=== PATIENT | female | born 1950 | race Caucasian/White ===

== ENCOUNTER 2022-05-30 08:08 | Outpatient (CLI) | payer MEDICARE | END 2022-05-30 08:09 | disposition home or self-care (01) | LOC: NM 08:08 | PROVIDERS: ATTEND Internal Medicine Endocrinology, Diabetes & Metabolism | DX: E05.00 Thyrotoxicosis with diffuse goiter without thyrotoxic crisis or storm (principal) | CPT/HCPCS: 78014; A9516 ==

== ENCOUNTER 2022-06-24 12:23 | Outpatient (CLI) | payer MEDICARE | END 2022-06-24 12:24 | disposition home or self-care (01) | LOC: NM 12:23 | PROVIDERS: ATTEND Internal Medicine Endocrinology, Diabetes & Metabolism | DX: E05.00 Thyrotoxicosis with diffuse goiter without thyrotoxic crisis or storm (principal) | CPT/HCPCS: 79005; A9517 ×2 ==

== ENCOUNTER 2025-07-25 12:20 | Emergency (ER) | payer MEDICARE ==
[2025-07-25] MEDS ORDERED: Iopamidol-370 76% 500 ML MDV (1 ML CHARGE) ONE (14:00)
[2025-07-25 14:11] LABS: #Basophils Less than 0.03 10x3/uL (0.0-0.2); #Eosinophils Less than 0.03 10x3/uL (0.0-0.7); #Monocytes 0.93 10x3/uL (0.11-0.59); #Neutrophils 5.44 10x3/uL (1.40-6.50); %Basophils 0.3 % (0.0-1.0); %Eosinophils 0.3 % (0.0-10.0); %Lymphocytes 8.7 % (21.0-51.0); %Monocytes 13.2 % (0.0-10.0); %Neutrophils 77.1 % (42.0-75.0); Hematocrit 42.2 % (36.0-47.0); Hemoglobin 13.4 g/dL (12.0-16.0); Mean Corpuscular Hemoglobin 28.0 pg (27.0-31.0); Mean Corpuscular Volume 88.3 fL (78.0-98.0); Platelet Count 236 10x3/uL (130-400); Red Blood Cell (RBC) Count 4.78 mill/uL (4.20-5.40); White Blood Cell (WBC) Count 7.05 10x3/uL (4.8-10.8)
[2025-07-25 14:33] LABS: ALT (SGPT) 306 U/L (Less than 34); AST (SGOT) 284 U/L (11-34); Albumin 3.2 g/dL (3.1-4.5); Alkaline Phosphatase 343 U/L (40-110); Anion Gap 13 mmol/L (10-20); BUN (Urea Nitrogen) 6 mg/dL (9.8-20.1); Bilirubin, Total 8.1 mg/dL (0.3-1.2); Calc. Creatinine Clearance 0 mL/min (70-130); Calcium 9.3 mg/dL (7.8-10.44); Carbon Dioxide 25 mmol/L (23-31); Chloride 105 mmol/L (98-107); Globulin 3.8 g/dL (2.4-3.5); Glucose 130 mg/dL (83-110); Lipase 14 U/L (8-78); Potassium 3.5 mmol/L (3.5-5.1); Sodium 139 mmol/L (136-145)
[2025-07-25 15:29] LABS: Bacteria/HPF None Seen HPF (None Seen); CAUTI Indications for Culture Dysuria,urgency,freq; Glucose, Urine (Dipstick) Normal (Negative); Leukocyte Negative Leu/uL (Negative); Protein, Urine (Dipstick) Negative (Neg-Trace); RBC/HPF 0-3 HPF (0-3); Specific Gravity, Urine 1.008 (1.002-1.036); WBC/HPF 0-3 HPF (0-3)
[2025-07-25 15:32] LABS: Urine Culture Reflex No No
[2025-07-25] MEDS ORDERED: Lisinopril 10 MG TAB ONE (19:12)
[2025-07-25] MEDS ORDERED: Ondansetron PF 4 MG/2 ML Vial ONE (22:38)
== END 2025-07-25 23:02 | disposition short-term general hospital (02) ==
LOC: ERS 12:20
DX: C78.89 Secondary malignant neoplasm of other digestive organs (principal); E80.6 Other disorders of bilirubin metabolism; I10 Essential (primary) hypertension; E03.9 Hypothyroidism, unspecified; Z79.899 Other long term (current) drug therapy
CPT/HCPCS: 71260; 74178; 80053; 81001; 83690; 85025; 96374; 96375; Q9967